=== PATIENT | male | born 1965 | race Caucasian/White ===

== ENCOUNTER 2016-08-21 10:06 | Emergency (ER) | payer BC ==
[~2016-08-21] VITALS: Ht 182.9 cm; Wt 120.0 kg
[~2016-08-21 10:06] MED LIST: ALL180 PO; AMLO-110 PO; ATEN50TA8 PO; ATOR-22 PO; CHOL100010 PO; LISI-787 PO; MULT-106 PO; OMEP20TA PO; SALI0.6510 NAE; WARF5TAB7 PO
[2016-08-21 10:08] VITALS: PULSE 92; TEMP 36.8; O2SAT 95; Ht 182.9 cm; Wt 120.0 kg
[2016-08-21] MEDS ORDERED: WARF2.5T8 PO ×2 (10:19)
--- NOTE | 2016-08-21 10:27 | EMERGENCY ROOM VISIT NOTE ---
ED Visit Note First contact with patient: 10:10 CHIEF COMPLAINT: Tick bite left thigh HISTORY OF PRESENT ILLNESS: The patient states that he was outdoors on Sunday and then Sunday evening he noticed a dark spot on his left thigh. He thought it was just blood. This morning he looked at it more closely and realized it was a tech. The patient removed the tick by grabbing it with his fingers and twisting it. He is unsure if he removed the entire tick. The patient's tetanus is up-to-date. The patient denies any fever or body aches. REVIEW OF SYSTEMS: 6 system review was performed and was negative unless stated otherwise in history of present illness. PMH: The patient is healthy; hypertension SOCIAL HISTORY: Patient admits to tobacco use and occasional alcohol use. PHYSICAL EXAM: Vital Signs: Were reviewed Reviewed Nurse's notes. GENERAL: 50- year-old white male appears in no acute distress. MENTAL STATUS: Alert and oriented 3. LEFT THIGH: There is a small zone of inflammation and eccymosis around the spot where the tick was. Under magnification there were no visible remains of the tick within the patient's skin. The skin is otherwise clear. EMERGENCY COURSE. The patient was evaluated. The patient was given doxycycline 200 mg by mouth. Bacitracin and a bandage was applied. DIAGNOSIS: Tick bite left thigh DISCHARGE INSTRUCTIONS & TREATMENT: Watch the area for signs of infection. Any signs of infection, follow-up with family doctor. Keep bacitracin on it for 2 days. Problem List Medical Problems: (1) A-fib Status: Chronic (2) Hypertension Status: Chronic Current/Historical Medications Scheduled Atenolol (Tenormin), 50 MG PO DAILY Lisinopril & Hydrochlorothiazi (Zestoretic 20-12.5 mg), 1 TAB PO DAILY Omeprazole (Omeprazole), 20 MG PO DAILY Warfarin Sod (Jantoven), 2.5 MG PO DIRECTED Warfarin Sod (Jantoven), 5 MG PO 2XWK Allergies Coded Allergies: [place] (Verified Allergy, Unknown, HIVES, 08/21/16) [place] (Verified Adverse Reaction, Unknown, N&V, 08/21/16) Mushroom (Verified Adverse Reaction, Unknown, N&V, 08/21/16) Vital Signs Date Time Temp Pulse Resp B/P Pulse Ox O2 Delivery O2 Flow Rate FiO2 08/21/16 10:08 36.8 92 18 143/87 95 Room Air Departure Information Referrals Emanuel Abernathy D.O. (PCP) Patient Instructions [facility]
[2016-08-21] MEDS ORDERED: DOXYCYCLINE HYCLATE 100 MG CAP PO ONE (10:30)
[2016-08-21 10:51] VITALS: BP 137/82
[2016-11-15] MEDS ORDERED: GLUC1CAP33 PO (07:07)
[2016-11-15] MEDS ORDERED: CHOL1000 PO (07:07)
[2016-11-15] MEDS ORDERED: FEXO1TAB49 PO (07:07)
[2016-11-15] MEDS ORDERED: FLUT0.15 INH (07:07)
[2016-11-15] MEDS ORDERED: INDO-22 PO (07:07)
[2016-11-15] MEDS ORDERED: MULT-106 PO (07:07)
[2016-11-15] MEDS ORDERED: WARF2.5T8 PO (07:08)
[2016-11-15] MEDS ORDERED: COEN1CAP PO (07:22)
== END 2016-08-21 10:52 | disposition home or self-care (01) ==
LOC: C.EDB 10:07
DX: S70.362A Insect bite (nonvenomous), left thigh, initial encounter (principal); W57.XXXA Bitten or stung by nonvenomous insect and other nonvenomous arthropods, initial encounter; I10 Essential (primary) hypertension; I48.91 Unspecified atrial fibrillation; F17.200 Nicotine dependence, unspecified, uncomplicated; Z79.01 Long term (current) use of anticoagulants; Z79.899 Other long term (current) drug therapy; Z91.018 Allergy to other foods

== ENCOUNTER 2016-09-25 09:36 | Emergency (ER) | payer BC ==
[~2016-09-25] VITALS: Ht 185.4 cm; Wt 120.8 kg
[~2016-09-25 09:36] MED LIST changes: -ALL180 PO; -AMLO-110 PO; -ATOR-22 PO; -CHOL100010 PO; -MULT-106 PO; -SALI0.6510 NAE; +WARF2.5T8 PO; -WARF5TAB7 PO
[2016-09-25 09:40] VITALS: TEMP 36.7; Ht 185.4 cm; Wt 120.8 kg
[2016-09-25 10:05] VITALS: O2SAT 96
[2016-09-25] MEDS ORDERED: NITROGLYCERIN 0.4 MG SL PER TAB CHARGE SL STA (10:14)
--- NOTE | 2016-09-25 10:14 | EMERGENCY ROOM VISIT NOTE ---
History Report prepared by Reva: Lynette Novak Under the Supervision of: Dr. Concepcion Wilde D.O. First contact with patient: 10:02 Chief Complaint: CHEST PAIN Stated Complaint: CHEST PAIN, A-FIB Nursing Triage Summary: left sternal CP since Sunday intermittent, does not radiate. Pt verbalizes this has happened a few times in the past but has never been checked out for it. Hx Atrial fibrillation, on Coumadin. History of Present Illness The patient is a 50 year old male who presents to the Emergency Room with complaints of worsening intermittent chest pain beginning 3 days prior to arrival. The patient describes the pain as a discomfort. He is experiencing shortness of breath and nausea. The patient has a history of atrial fibrillation and is on Coumadin. He has had this type of chest pain before but denies being hospitalized for it before. He notes a stress test was done 2 days ago and had normal results. The patient has a family history of cardiac events. His father had an irregular heart beat and had 3 small heart attacks. No stents or pacemakers. The patient also notes that two of his uncles have pass makers. His INR level was checked last week and was normal. 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 Review of Systems See HPI for pertinent positives & negatives. A total of 10 systems reviewed and were otherwise negative. Past Medical & Surgical Medical Problems: (1) A-fib (2) Hypertension Family History Diabetes mellitus Heart disease Hypertension Social History Smoking Status: Former Smoker Smokeless Tobacco Use: No Alcohol Use: occasionally Housing Status: lives alone Occupation Status: employed Current/Historical Medications Scheduled Atenolol (Tenormin), 50 MG PO DAILY Lisinopril & Hydrochlorothiazi (Zestoretic 20-12.5 mg), 1 TAB PO DAILY Omeprazole (Omeprazole), 20 MG PO DAILY Warfarin Sod (Jantoven), 2.5 MG PO DIRECTED Warfarin Sod (Jantoven), 5 MG PO 2XWK Allergies Coded Allergies: [place] (Verified Allergy, Unknown, HIVES, 08/21/16) [place] (Verified Adverse Reaction, Unknown, N&V, 08/21/16) Mushroom (Verified Adverse Reaction, Unknown, N&V, 08/21/16) Physical Exam Vital Signs Date Time Temp Pulse Resp B/P Pulse Ox O2 Delivery O2 Flow Rate FiO2 09/25/16 12:16 68 18 134/96 98 Room Air 09/25/16 11:12 67 18 110/61 96 Room Air 09/25/16 10:45 58 18 142/72 96 Room Air 09/25/16 10:05 96 Room Air 09/25/16 10:05 96 Room Air 09/25/16 10:02 98 Room Air 09/25/16 09:55 65 09/25/16 09:40 36.7 74 18 124/77 96 Room Air Physical Exam HEENT: Head - normocephalic and atraumatic Pupils are equal, round, and reactive to light. Extraocular eye muscles are intact, and sclera are anicteric. Nose - moist nasal mucosa without discharge. Mouth - moist buccal mucosa. Oropharynx is nonerythematous and there is no tonsillar exudate or edema noted. Neck: Supple; no JVD, nuchal rigidity, cervical lymphadenopathy, or auscultated bruits. Heart: Irregularly irregular rate and rhythm. There is a normal S1 and S2 with no murmurs, clicks, or gallops appreciated. Lungs: Clear to auscultation bilaterally with no wheezes, rales, or rhonchi. Abdomen: Soft, completely nontender, nondistended, with good bowel sounds. There are no palpable pulsatile masses or hepatosplenomegaly. There is no guarding, rigidity, or rebound noted. Extremities: No evidence of cyanosis, clubbing, or edema. There are easily palpable peripheral pulses. Skin: warm and dry with good turgor and no rashes. Medical Decision & Procedures ER Provider Diagnostic Interpretation: X-ray results as stated below per interpretation by me and the radiologist: CHEST ONE VIEW PORTABLE CLINICAL HISTORY: Chest pain. COMPARISON STUDY: Chest radiograph December 17, 2015. FINDINGS: Lung volumes are normal. There is no pneumothorax or pleural effusion. There is no evidence of pulmonary edema. Cardiomediastinal silhouette is stable. No consolidation is identified. IMPRESSION: No acute cardiopulmonary findings. Electronically signed by: Augie Triplett M.D. 09/25/2016 10:17 AM Dictated Date/Time: 09/25/2016 10:17 AM Laboratory Results 09/25/16 10:00 09/25/16 10:00 Test 09/25/16 10:00 Red Blood Count 5.37 M/uL (4.7-6.1) Mean Corpuscular Volume 90.1 fL (80-100) Mean Corpuscular Hemoglobin 30.9 pg (25-34) Mean Corpuscular Hemoglobin Concent 34.3 g/dl (32-36) RDW Standard Deviation 44.6 fL (36.4-46.3) RDW Coefficient of Variation 13.6 % (11.5-14.5) Mean Platelet Volume 9.4 fL (7.4-10.4) Prothrombin Time 36.8 SECONDS (9.0-12.0) Prothromb Time International Ratio 3.3 (0.9-1.1) Activated Partial Thromboplast Time 35.0 SECONDS (21.0-31.0) Partial Thromboplastin Ratio 1.3 Anion Gap 6.0 mmol/L (3-11) Est Creatinine Clear Calc Drug Dose 119.0 ml/min Estimated GFR () 100.6 Estimated GFR (Non- 86.8 BUN/Creatinine Ratio 10.2 (10-20) Calcium Level 8.4 mg/dl (8.5-10.1) Total Bilirubin 0.5 mg/dl (0.2-1) Aspartate Amino Transf (AST/SGOT) 26 U/L (15-37) Alanine Aminotransferase (ALT/SGPT) 38 U/L (12-78) Alkaline Phosphatase 79 U/L (45-117) Total Creatine Kinase 136 U/L (39-308) Creatine Kinase MB 2.4 ng/ml (0.5-3.6) Creatine Kinase MB Ratio 1.8 (0-3.0) Bedside Troponin I 0.000 ng/ml (0-0.045) Total Protein 7.4 gm/dl (6.4-8.2) Albumin 3.8 gm/dl (3.4-5.0) Globulin 3.6 gm/dl (2.5-4.0) Albumin/Globulin Ratio 1.1 (0.9-2) Laboratory results per my review. Medications Administered Medications (Trade) Dose Ordered Sig/Mavis Route Start Time Stop Time Status Last Admin Dose Admin Nitroglycerin (Nitrostat Tab) 0.4 mg Q5M STAT SL 09/25/16 10:14 09/25/16 10:15 DC 09/25/16 10:14 0.4 MG Procedure Nitrostat Tab 0.4 mg SL. ECG Indication: chest pain Rate (beats per minute): 63 Rhythm: atrial fibrillation Findings: no acute ischemic change, no ectopy ED Course 1008: Past medical records reviewed. The patient was evaluated in room C5. A complete history and physical exam was performed. A twelve-lead EKG was obtained as described above. An IV lock was initiated and labs were drawn as above. 1014: Nitrostat Tab 0.4 mg SL. 1108: I checked on the patient. The nitro decreased the pain. He has a headache now. I discussed results. 1134: I spoke with Dr. Malcolm Burnett about the patient. He will come evaluate the patient. 1136: I informed the patient that Dr. Fowler will come evaluate him. 1207: Dr. Fowler saw the patient. He notes the discomfort is reproducible over left 4th rib. He recommends the patient is discharged home and follows up in the office. 1221: Upon reevaluation, the patient is hemodynamically stable. I discussed findings and results with him. He verbalized agreement of the treatment plan. He was discharged home. Medical Decision The patient is a 50 year old male who presents to the ED with chest pain. Differential diagnosis includes GERD, cardiac ischemia, ACS , STEMI. Lab findings include: normal white blood cell count, normal H&H, normal renal failure, normal LFT, troponin 0, glucose 112, INR 3.3. EKG and cardiac enzymes are negative despite having discomfort in the chest over the past couple of hours. A portable chest x-ray was unremarkable. The patient did have some relief of the discomfort in his chest with nitroglycerin. He was evaluated by his counter checker here in the emergency department. Cardiology felt that the pain was reproducible and not cardiac in origin. The patient will be discharged home to follow-up with the counter checker in the office. The patient was instructed to return to the emergency department immediately if he developed worsening chest discomfort, shortness of breath, nausea or diaphoresis. Consults Time Called: 1132 Consulting Physician: Dr. Malcolm Burnett Returned Call: [address] Malcolm Burnett about the patient. He will come evaluate the patient. Impression Primary Impression: Left sided chest pain Scribe Attestation The scribe's documentation has been prepared under my direction and personally reviewed by me in its entirety. I confirm that the note above accurately reflects all work, treatment, procedures, and medical decision making performed by me. Departure Information Dispostion Home / Self-Care Referrals Emanuel Abernathy D.O. (PCP) Forms HOME CARE DOCUMENTATION FORM, IMPORTANT VISIT INFORMATION Patient Instructions Chest Pain - [facility], ED Chest Pain Atypical Unkn Cause, My [facility] Additional Instructions Follow up with Dr. Fowler as directed. Return to the ER for worsening symptoms
--- NOTE | 2016-09-25 10:19 | DIAGNOSTIC IMAGING REPORT ---
CHEST ONE VIEW PORTABLE CLINICAL HISTORY: Chest pain. COMPARISON STUDY: Chest radiograph December 17, 2015. FINDINGS: Lung volumes are normal. There is no pneumothorax or pleural effusion. There is no evidence of pulmonary edema. Cardiomediastinal silhouette is stable. No consolidation is identified. IMPRESSION: No acute cardiopulmonary findings. Electronically signed by: Augie Triplett M.D. 09/25/2016 10:17 AM Dictated Date/Time: 09/25/2016 10:17 AM
[2016-09-25 10:21] LABS: HEMATOCRIT 48.4 % (42-52); MEAN CELL VOLUME 90.1 fL (80-100); MEAN CORPUSCULAR HEMOGLOBIN 30.9 pg (25-34); MEAN CORPUSCULAR HGB CONC 34.3 g/dl (32-36); MEAN PLATELET VOLUME 9.4 fL (7.4-10.4); PLATELET COUNT 234 K/uL (130-400); RED BLOOD COUNT 5.37 M/uL (4.7-6.1); WHITE BLOOD COUNT 8.59 K/uL (4.8-10.8)
[2016-09-25 10:36] LABS: INR 3.3 (0.9-1.1); PARTIAL THROMBOPLASTIN RATIO 1.3; PROTHROMBIN TIME (PATIENT) 36.8 SECONDS (9.0-12.0)
[2016-09-25 10:43] LABS: BUN/CREATININE RATIO 10.2 (10-20); CALCIUM 8.4 mg/dl (8.5-10.1); POTASSIUM 3.8 mmol/L (3.5-5.1)
[2016-09-25 10:48] LABS: ALB/GLOB RATIO 1.1 (0.9-2); CKMB/CK RATIO 1.8 (0-3.0)
[2016-09-25 12:16] VITALS: BP 134/96; PULSE 68; O2SAT 98
--- NOTE | 2016-09-25 15:21 | CARDIOLOGY CONSULTATION ---
DATE OF CONSULTATION: 09/25/2016 CONSULTATION REQUESTED BY: Dr. Wilde. REASON FOR CONSULTATION: Chest pain. HISTORY OF PRESENT ILLNESS: Mr. Dickens is a very pleasant 50-year-old gentleman who previously followed with me as an outpatient for his history of persistent atrial fibrillation. He presented to [facility] Emergency Department on 09/25/2016 with a complaint of chest pain. The patient states his pain started on the . He states that he remembers he was just sitting at home when he suddenly started feeling a sharp stabbing sensation in his left chest. He denied any radiation of the discomfort or any associated shortness of breath, diaphoresis, nausea, palpitations, lightheadedness, dizziness, or syncope. States he just felt like a knife stabbing him in the chest. It lasted for a few hours, but then went away on its own and he decided not to seek any further evaluation at that time. The pain then waxed and waned over the next several days, but then occurred again this a.m. Each time it was the same, it would always occur at rest. No associating with stress or anxiety. 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 Upon presentation, his cardiac enzymes were unremarkable as was his EKG and cardiology was consulted for possible stress test. Otherwise, the patient denies any recent trauma to his chest, and he does not remember lifting anything heavier or any other possible injuries. PAST SURGICAL HISTORY: 1. Colonoscopy. 2. Upper endoscopy. 3. Sinus surgery. 4. Rotator cuff repair. 5. Uvulectomy. 6. Vasectomy. MEDICAL ILLNESSES: 1. Persistent atrial fibrillation, on chronic Coumadin therapy. 2. Hypertension. 3. Dyslipidemia. 4. Obstructive sleep apnea. FAMILY HISTORY: Remarkable for father developed heart disease in his late 40s. SOCIAL HISTORY: The patient is a former smoker, quit many years ago. Uses daily smokeless tobacco. Drinks occasional alcohol. Denies any recreational drug use. 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 REVIEW OF SYSTEMS: As per HPI, all other review of systems reviewed and negative at this time. ALLERGIES: No known drug allergies. Multiple food allergies. MEDICATIONS AN OUTPATIENT: 1. Atenolol 50 mg daily. 2. Lisinopril/hydrochlorothiazide 20/12.5 mg daily. 3. Coumadin as directed by the [facility]. 4. Indocin as needed. 5. Prilosec daily. 6. Cialis as needed. PHYSICAL EXAMINATION: VITALS: Temperature is 36.7, pulse 67, respiratory rate 12, blood pressure 110/61. GENERAL: Awake, alert, oriented x3 in no acute distress. HEENT: Normocephalic, atraumatic. Pupils equal, round, and reactive to light and accommodation. Extraocular muscles intact. Anicteric sclerae. Moist mucous membranes. NECK: No JVD, no bruit. CARDIOVASCULAR: Irregularly irregular, unable to appreciate any murmurs, rubs or gallops. PULMONARY: Clear to auscultation bilaterally. No rales, rhonchi, or wheezing. ABDOMEN: Bowel sounds x4, soft. No rebound, guarding, tenderness. No organomegaly. EXTREMITIES: No clubbing, cyanosis or edema. +2 pedal pulses bilaterally. SKIN: Warm and dry. MUSCULOSKELETAL: Direct palpation of his left 4th rib was able to reproduce the discomfort. A 12-lead EKG performed in the Emergency Department independently reviewed at this time shows atrial fibrillation at 63 beats per minute, no signs of active ischemia, no significant change compared to previous studies. IMPRESSION: 1. Musculoskeletal chest pain. 2. History of false positive stress testing with normal coronary arteries by cardiac catheterization in 2013. 3. Atrial fibrillation, rate controlled on chronic Coumadin therapy. 4. Hypertension, controlled. RECOMMENDATIONS: It was my pleasure to see Mr. Dickens in consultation today. From a cardiac standpoint, given the fact that the pain is reproducible, I believe it is musculoskeletal in nature and no further cardiac testing or intervention is necessary at this time. The patient was given instructions on stretching exercises as well as using hot or cold compresses as needed for pain control as well as Tylenol as needed. Otherwise, given his longstanding history of atrial fibrillation and the fact he has not been seen by cardiology in quite some time, my office will call him to set up for followup in the next several weeks. Otherwise, no medication changes will be made at this time and it is okay to discharge the patient home from my standpoint.
[2016-11-15] MEDS ORDERED: INDO-22 PO (07:07)
[2016-11-15] MEDS ORDERED: CHOL1000 PO (07:07)
[2016-11-15] MEDS ORDERED: FLUT0.15 INH (07:07)
[2016-11-15] MEDS ORDERED: GLUC1CAP33 PO (07:07)
[2016-11-15] MEDS ORDERED: FEXO1TAB49 PO (07:07)
[2016-11-15] MEDS ORDERED: MULT-106 PO (07:07)
[2016-11-15] MEDS ORDERED: WARF2.5T8 PO (07:08)
[2016-11-15] MEDS ORDERED: COEN1CAP PO (07:22)
== END 2016-09-25 12:30 | disposition home or self-care (01) ==
LOC: C.EDB 09:37 → C.EDC 12:30
DX: R07.9 Chest pain, unspecified (principal); I48.91 Unspecified atrial fibrillation; I10 Essential (primary) hypertension; Z83.3 Family history of diabetes mellitus; Z82.49 Family history of ischemic heart disease and other diseases of the circulatory system; Z87.891 Personal history of nicotine dependence; Z79.01 Long term (current) use of anticoagulants; Z51.81 Encounter for therapeutic drug level monitoring

== ENCOUNTER → 2016-11-15 | Day surgery (SDC) | payer BC ==
[~2016-11-15] VITALS: Ht 182.9 cm; Wt 111.0 kg
[~2016-11-15] MED LIST changes: +ASPIRIN 81 MG CHEW ONE; +CHOL1000 PO; +COEN1CAP PO; +FENTANYL CITRATE INJ 50 MCG/1 ML 2 ML VIAL ONE; +FEXO1TAB49 PO; +FLUT0.15 INH; +GLUC1CAP33 PO; +HEPARIN SOD (PORCINE) 1000 UNIT/ML 10 ML VIAL ONE; +HYDR-5688 PO; +INDO-22 PO; +MIDAZOLAM HCL 1 MG/ML 2ML VIAL ONE; +MULT-106 PO; +MoRPHine SULFATE 2 MG/ML CARP ONE; +NITROGLYCERIN/D5W 100MCG/ML 20ML SYR ONE; +NiCARDipine HCL INJ 2.5 MG/ML 10 ML AMP ONE; +WARF5TAB7 PO
[2016-11-15 07:15] VITALS: BP 132/65; PULSE 59; TEMP 36.4; O2SAT 97; Ht 182.9 cm; Wt 111.0 kg
--- NOTE | 2016-11-15 11:17 | History & Physical Bridge Note ---
H&P Re-Evaluation Bridge Note: I have examined the patient, reviewed the History & Physical and in the interval since the performance of the History & Physical I have noted the following changes of clinical significance: No changes noted
--- NOTE | 2016-11-15 11:18 | Procedure Note ---
Pre-Mod Sedation Assessment General Date of Moderate Sedation: Nov 15, 2016. Vital Signs: Vital Signs Past 12 Hours Date Time Temp Pulse Resp B/P (MAP) Pulse Ox O2 Delivery O2 Flow Rate FiO2 11/15/16 11:10 80 16 131/80 (97) 98 Room Air 11/15/16 11:09 80 16 131/80 (97) 98 Room Air 11/15/16 07:15 36.4 59 16 132/65 97 Room Air Review Cardiovascular: no edema, no JVD, no murmur, + irregularly irregular Abdomen: normal bowel sounds, non tender, soft Lungs: chest non-tender, lungs clear Pre-Sedation Airway Assessment Oral Cavity: WNL Short Thick Neck: No Hx of Sleep Apnea: Yes Smoking Status: Former Smoker Mallampati Classification: Class III ASA Classification: Class II Procedure Planning Contraindications-for Mod Sed: None Yes Notes The planned sedation has been discussed with the patient and consent obtained. I have identified the patient, determined the appropriateness of sedation and have assessed the patient immediately prior to the procedure. All medicine(s) and interventions are by my order.
--- NOTE | 2016-11-15 11:19 | Procedure Note ---
Post-Mod Sedation Assessment General Date of Moderate Sedation Nov 15, 2016. Vital Signs: Vital Signs Past 12 Hours Date Time Temp Pulse Resp B/P (MAP) Pulse Ox O2 Delivery O2 Flow Rate FiO2 11/15/16 11:10 80 16 131/80 (97) 98 Room Air 11/15/16 11:09 80 16 131/80 (97) 98 Room Air 11/15/16 07:15 36.4 59 16 132/65 97 Room Air Review - Discharge Criteria Vital Signs Stable: Yes Alert/Oriented/Conversant: Yes Returned to Baseline Mental St: Yes Nausea Absent/Minimal: Yes Pain/Discomfort/Absent/Minimal: Yes Normal/Baseline Respirations: Yes Active Bleeding?: No Pt Received D/C Instructions: Yes Prescriptions Given: None Specific Proced. D/C Criteria Distal Pulses Present (Cardiac: Yes Groin site assessed-Card Cath: N/A Voided Prior To Discharge: N/A Discharged Patients Adult Escort/Transportation: Yes
--- NOTE | 2016-11-15 11:28 | Cardiac Catheterization ---
Procedure Note Procedure Date Nov 15, 2016. 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 Hemodynamics Rest Ao: 105/70/86 Final Ao: 101/64/81 LV: 101/4/12 Recommendations Medical therapy and/or Counseling Specimens None Radiation Exposure (mGy) 1880 Contrast (mls) 55 Anesthesia Moderate sedation. Sedation monitor: Yanci RN, Start 1040, End 1109 Procedural Complication(s) None Disposition Stone Splitter Holding/Recovery ACC Data Cardiac Status Clinical evaluation leading to the procedure CAD Presntation: Positive Stress Test Anginal Classification: CCS II Heart Failure: No Imaging studies past 6 months: Yes Stress studies past 6 months: Yes Stress Echocardiogram: Yes - Indeterminant Coronary Anatomy Dominant: Right Left Main (% Stenosis): Normal LAD (% Stenosis): Normal D1 (% Stenosis): Normal D2 (% Stenosis): Normal Circumflex (% Stenosis): Normal OM1 (% Stenosis): Normal RCA (% Stenosis): Normal R PDA (% Stenosis): Normal R PL1 (% Stenosis): Normal AM (% Stenosis): Normal Diagnostic Status: Elective Closure Device Percutaneous Entry Location: Radial Closure Device: Radial Band Recommendations: Medical therapy and/or Counseling Intraprocedure Events Significant Dissection: No Perforation: No
--- NOTE | 2016-11-15 11:31 | Discharge Instructions ---
Discharge Instructions Procedure Procedure Date: Nov 15, 2016. Reason for Visit: Left Heart Cath *Dr. Villela To Do*. Discharge Discharge Date: Nov 15, 2016. Discharge Diagnosis: Status post cardiac catheterization. Normal coronary arteries. Last Recorded Wt (Kilograms): 111 Anesthesia Post Anesthesia Instructions: If you have had General Anesthesia or IV Sedation: * Do not drive today. * Resume driving when surgeon permits. * Do not make important decisions or sign legal documents today. * Call surgeon for: 1. Temperature elevations greater than 101 degrees F. 2. Uncontrollable pain. 3. Excessive bleeding. 4. Persistent nausea and vomiting. 5. Medication intolerance (nausea, vomiting or rash). * For nausea and vomiting use only clear liquids such as: tea, soda, bouillon until nausea subsides, then gradually increase diet as tolerated. * If you have any concerns or questions, call your surgeon's office. If physician is unavailable and it is an emergency, call 911 or go to the nearest emergency room. Instructions Activity Recommendations: limitations as noted below Return to School/Work: with the following limitations Recommended Home Diet: resume previous diet Allergies: Coded Allergies: Verbena (Verified Allergy, Unknown, HIVES, 08/21/16) Monzon (Verified Adverse Reaction, Unknown, N&V, 08/21/16) Mushroom (Verified Adverse Reaction, Unknown, N&V, 08/21/16) Provider Instructions ACTIVITY RECOMMENDATIONS: Excess manipulation of the wrist should be avoided for the next 24-48 hours. * No lifting over 2 pounds (approximately a 1/2 gallon of milk) with the utilized arm for 24 hours. * No strenuous activity such as bowling or tennis for 3 days. * Keep the site of the procedure covered with a bandage for 24 hours. *You may shower the day after the procedure. Do not take a tub bath or submerge the puncture site in water for the next 3 days. *Do not operate any motorized equipment for 3 days. SPECIAL CARE INSTRUCTIONS: The site may be slightly bruised and sore following your procedure. Should any of the following occur, contact the DrTato who performed your procedure. 1. Redness/inflammation, swelling, chills, or fever, or colored drainage at procedure site within 3-7 days after your procedure. 2. Coldness, discoloration, ongoing numbness, severe pain, or swelling. Expect mild tingling of hand and tenderness at the puncture site for up to three days. If this persists beyond three days, or other symptoms develop, notify the Dr. who performed your procedure. BLEEDING: If the procedure site on your wrist begins to bleed, do not panic 1. Place 1 or 2 fingers firmly just slightly above the insertion site to stop the bleeding. You may be able to feel your pulse as you hold pressure. 2. Lift your finger after 5 minutes to see if the bleeding has stopped. 3. Once the bleeding has stopped, gently wipe the wrist area clean with a bandage. * If the bleeding from your wrist does not stop after 10 minutes, or if there is a large amount of bleeding or spurting, call 911 (do not drive yourself to the hospital). SKIN IRRITATION: * You may experience some redness and/or swelling in the area where radiation was administered. If any skin irritation occurs, please contact your family physician. FOLLOW UP VISIT: Keep any scheduled doctor appointments. Follow Up Follow-up with: Dr. Fowler as scheduled. Rogelio De La Cruz Recommendations: Call your doctor if: * Temperature above 101 degrees * Pain not relieved by pain medicine ordered * There is increased drainage or redness from any incision * You have any unanswered questions or concerns. Your Doctors Instructions noted above were prepared by provider Kam Dickey. Patient Signature Section: Patient Instructions Signature Page Rosales Dickens Patient (or Guardian) Signature/Date: I have read and understand the instructions given to me by my caregivers. Caregiver/RN/Doctor Signature/Date: The above-named patient and/or guardian has received patient instructions on this date. + Original Patient Signature Page (only) stays with chart. Please make copy for patient.
[2016-11-15 13:45] VITALS: BP 136/78; PULSE 68; O2SAT 98
== END | disposition home or self-care (01) ==
LOC: C.CATH 06:47
PROVIDERS: ATTEND Internal Medicine Cardiovascular Disease
DX: I48.91 Unspecified atrial fibrillation (principal); R07.89 Other chest pain; R06.09 Other forms of dyspnea; Z79.01 Long term (current) use of anticoagulants; I10 Essential (primary) hypertension; E78.5 Hyperlipidemia, unspecified

== ENCOUNTER 2017-01-10 07:09 | Emergency (ER) | payer BC, OTHER ==
[~2017-01-10] VITALS: Ht 182.9 cm; Wt 120.0 kg
[~2017-01-10 07:09] MED LIST changes: -ASPIRIN 81 MG CHEW ONE; -FENTANYL CITRATE INJ 50 MCG/1 ML 2 ML VIAL ONE; -GLUC1CAP33 PO; -HEPARIN SOD (PORCINE) 1000 UNIT/ML 10 ML VIAL ONE; -HYDR-5688 PO; -INDO-22 PO; -MIDAZOLAM HCL 1 MG/ML 2ML VIAL ONE; -MoRPHine SULFATE 2 MG/ML CARP ONE; -NITROGLYCERIN/D5W 100MCG/ML 20ML SYR ONE; -NiCARDipine HCL INJ 2.5 MG/ML 10 ML AMP ONE; -WARF5TAB7 PO
[2017-01-10 07:15] VITALS: TEMP 36.7; Ht 182.9 cm; Wt 120.0 kg
[2017-01-10] MEDS ORDERED: MoRPHine SULFATE 10 MG/ML CARP/VIAL IV STA (08:07)
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
[2017-01-10 08:48] LABS: BASO % 0.1 %; BASO ABS # 0.01 K/uL (0-0.2); COMPLETE YES; EOS % 0.2 %; HEMATOCRIT 49.8 % (42-52); IG% 0.2 %; LYMPH % 27.3 %; LYMPH ABS # 2.32 K/uL (1.2-3.4); MEAN CELL VOLUME 89.9 fL (80-100); MEAN CORPUSCULAR HEMOGLOBIN 30.1 pg (25-34); MEAN CORPUSCULAR HGB CONC 33.5 g/dl (32-36); MEAN PLATELET VOLUME 9.4 fL (7.4-10.4); MONO % 7.9 %; NEUT % 64.3 %; PLATELET COUNT 230 K/uL (130-400); RED BLOOD COUNT 5.54 M/uL (4.7-6.1); WHITE BLOOD COUNT 8.49 K/uL (4.8-10.8)
[2017-01-10 08:56] LABS: URINE APPEARANCE CLEAR (CLEAR); URINE BILIRUBIN NEG (NEG); URINE COLOR YELLOW; URINE NITRITE NEG (NEG); URINE SPECIFIC GRAVITY 1.017 (1.000-1.030); UROBILINOGEN NEG (NEG)
[2017-01-10 08:57] LABS: PARTIAL THROMBOPLASTIN RATIO 1.3; PROTHROMBIN TIME (PATIENT) 34.1 SECONDS (9.0-12.0)
[2017-01-10 08:59] LABS: MANUAL MICROSCOPIC REQUIRED? NO; REVIEW REQ? NO
[2017-01-10 09:08] LABS: BLOOD UREA NITROGEN 14 mg/dl (7-18); BUN/CREATININE RATIO 13.6 (10-20); CARBON DIOXIDE 27 mmol/L (21-32); CHLORIDE 104 mmol/L (98-107); CREATININE 0.99 mg/dl (0.60-1.40); GLUCOSE 104 mg/dl (70-99); POTASSIUM 3.7 mmol/L (3.5-5.1); SODIUM 138 mmol/L (136-145)
[2017-01-10 09:11] LABS: ISTAT HEMOGLOBIN 17.7 g/dl (14.0-18.0); ISTAT IONIZED CALCIUM 1.16 mmol/l (1.12-1.32)
[2017-01-10 09:13] LABS: ALKALINE PHOSPHATASE 69 U/L (45-117); ALT/SGPT 36 U/L (12-78); AST/SGOT 28 U/L (15-37)
[2017-01-10] MEDS ORDERED: OPTIRAY 320 IV PRN (09:15)
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
[2017-01-10 09:39] VITALS: O2SAT 97
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
[2017-01-10] MEDS ORDERED: ATEN50TA8 PO (09:52)
[2017-01-10] MEDS ORDERED: LISI-787 PO (09:52)
[2017-01-10] MEDS ORDERED: WARF5TAB7 PO (09:53)
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
[2017-01-10] MEDS ORDERED: HYDROCODONE/ACETAMOPHEN 5/325MG TAB PO STA (12:57)
[2017-01-10] MEDS ORDERED: HYDR-5688 PO (13:00)
[2017-01-10 13:15] VITALS: BP 142/78; PULSE 87; O2SAT 97
== END 2017-01-10 13:16 | disposition home or self-care (01) ==
LOC: C.EDB 07:10
DX: G89.11 Acute pain due to trauma (principal); M54.5 Low back pain; N50.811 Right testicular pain; V48.0XXA Car driver injured in noncollision transport accident in nontraffic accident, initial encounter; Y93.89 Activity, other specified; Y99.8 Other external cause status; Y92.488 Other paved roadways as the place of occurrence of the external cause; I10 Essential (primary) hypertension; I48.91 Unspecified atrial fibrillation; Z83.3 Family history of diabetes mellitus; Z82.49 Family history of ischemic heart disease and other diseases of the circulatory system; Z79.01 Long term (current) use of anticoagulants; Z79.899 Other long term (current) drug therapy